=== PATIENT | male | born 1965 | race Caucasian/White ===

== ENCOUNTER 2021-07-07 21:54 | Emergency (ER) | payer MEDICARE, MEDICAID ==
[~2021-07-07] VITALS: Ht 170.2 cm; Wt 53.8 kg
[2021-07-07 22:43] LABS: BASOPHILS % (AUTO) 1 % (0-1); EOSINOPHILS % (AUTO) 1 % (1-7); LYMPHOCYTES % (AUTO) 7 % (22-44); MEAN CORPUSCULAR HEMOGLOBIN 31.5 pg (27.5-34.5); MEAN CORPUSCULAR HGB CONC 34.7 g/dL (33.2-36.2); MEAN PLATELET VOLUME 7.2 fL (7.4-10.4); MONOCYTES % (AUTO) 9 % (2-9); NEUTROPHILS % (AUTO) 83 % (42-75); PLATELET COUNT 520 x10^3/uL (130-400); RED BLOOD COUNT 4.69 x10^6/uL (4.38-5.82); RED CELL DISTRIBUTION WIDTH 13.5 % (9.4-14.8)
[2021-07-07 22:55] LABS: ALBUMIN 2.9 g/dL (3.4-5.0); ANION GAP 6 mmol/L (5-15); CALCIUM 9.1 mg/dL (8.5-10.1); CHLORIDE 92 mmol/L (98-107)
[2021-07-07 22:59] LABS: ALANINE AMINOTRANSFERASE 29 U/L (12-78); ALKALINE PHOSPHATASE 125 U/L (45-117); BILIRUBIN,TOTAL 0.8 mg/dL (0.2-1.0); CREATININE 1.11 mg/dL (0.7-1.3)
[2021-07-07] MEDS ORDERED: LORazepam 2 MG/ML, 1ML IVPush ONE (23:30)
[2021-07-07] MEDS ORDERED: SODIUM CHLORIDE 0.9% 1,000ML IVBOLUS ONE (23:30)
[2021-07-07] MEDS ORDERED: INSULIN REGULAR 100 UNITS/ML, 3ML VIAL IVPush ONE (23:30)
[2021-07-08] MEDS ORDERED: INSULIN SINGLE DOSE, ER ONE (00:13)
[2021-07-08] MEDS ORDERED: LORazepam 2 MG/ML, 1ML ONE (00:13)
[2021-07-08 00:14] LABS: PH, VENOUS 7.374 pH (7.320-7.420)
[2021-07-08 02:15] VITALS: BP 120/71
[2021-07-08 02:23] LABS: ACETONE, SERUM Small (20mg/dL) (Negative)
[2021-07-08 02:39] LABS: SALICYLATE LEVEL < 1.7 mg/dL (2.8-20.0)
== END 2021-07-08 03:56 | disposition home or self-care (01) ==
LOC: ED 23:59
DX: R41.82 Altered mental status, unspecified (principal); E11.65 Type 2 diabetes mellitus with hyperglycemia
CPT/HCPCS: 36415; 80053; 80299; 80320; 82010; 82803; 82962; 85025; 96361; 96374; 96375; 99284; J1815; J2060; J7030; 80329; G0480